=== PATIENT | male | born 1950 | race Caucasian/White ===

== ENCOUNTER 2016-12-12 10:30 | Day surgery (SDC) | payer MEDICARE, OTHER ==
--- NOTE | 2016-12-11 15:01 | HP ---
DATE OF SURGERY: 12/12/2016 ADMISSION DIAGNOSIS: Epigastric pain. Follow up colonoscopic examination for polyps. ANTICIPATED PROCEDURE: EGD and colonoscopy. HISTORY OF PRESENT ILLNESS: The patient is due for three year follow up for colon polyps. He also has epigastric discomfort and no recent endoscopic examination. He presents for EGD and colonoscopy. PAST MEDICAL HISTORY: ALLERGIES: NONE. MEDICATIONS: Prilosec, Flomax, Zocor, Lotensin. PAST SURGICAL HISTORY: Vasectomy, cholecystectomy. Tumor of right leg. SOCIAL HISTORY: Negative. FAMILY HISTORY: Negative. PHYSICAL EXAMINATION: VITAL SIGNS: Normal. CHEST: Clear. COR: Regular. IMPRESSION: Epigastric pain. PLAN: Upper and lower endoscopic examination.
[~2016-12-12 10:30] MED LIST: DEMEROL 50 MG IV ONE; VERSED 5 MG/5 ML IV ONE
[2016-12-12] MEDS ORDERED: Sodium Chloride 0.9% 1000 ML 1,000 ML IV SCH (11:15)
[2016-12-12] MEDS ORDERED: Sodium Chloride 0.9% 1000 ML 1,000 ML ONE ×2 (11:26→13:45)
--- NOTE | 2016-12-12 15:39 | OP ---
SURGERY DATE/TIME: 12/12/2016 1320 PREOPERATIVE DIAGNOSES: 1) Epigastric pain, symptoms of reflux. 2) Follow up for polyps. PROCEDURES: 1) Colonoscopy complete to cecum with moderate internal hemorrhoids. 2) EGD with hot polypectomy x10 with diagnosis of multiple gastric polyps, benign grossly and grade II/III gastroesophageal reflux disease. No hiatal hernia. SURGEON: Margarito Donis M.D. ANESTHESIA: IV sedation. COMPLICATIONS: None. CONDITION: Stable. INDICATION: A 66 year-old requiring three year follow up of colon polyps. He also has epigastric symptoms. He had not had recent endoscopic exam. DESCRIPTION OF PROCEDURE: The patient is taken to the endoscopy suite. Left lateral decubitus position. After suitable sedation obtained the scope was introduced. There was grade II-III gastroesophageal reflux disease. There was no hiatal hernia. There was 10-20 polyps, the larger 10 were taken with hot biopsy forceps to extinction. Pylorus satisfactory. Duodenal bulb satisfactory. Second portion satisfactory. Scope withdrawn looped upon itself. Gastroesophageal junction satisfactory from below. Scope withdrawn. Anal digital examination satisfactory. Scope introduced. First the scope advanced to hepatic flexure and the up/down broke. It was withdrawn. A second scope placed and the right colon was cannulated to the base of the cecum. The base of the cecum was totally blind end. Ileocecal valve identified. Ascending, hepatic, transverse, splenic, descending, sigmoid, rectum there was moderate internal hemorrhoids. There were no polyps today. PLAN: Five year follow up on the colon, five year follow up on the stomach. The patient is to continue his pain medications.
[2016-12-12 17:17] VITALS: PULSE 63; O2SAT 98
[2016-12-12 17:21] VITALS: BP 149/99
== END 2016-12-12 17:25 | disposition home or self-care (01) ==
LOC: SDC 10:30
PROVIDERS: ATTEND Surgery
PROC: 0DJD8ZZ Inspection of Lower Intestinal Tract, Via Natural or Artificial Opening Endoscopic (ICD-10-PCS; principal; 2016-12-12)
PROC: 0DB68ZX Excision of Stomach, Via Natural or Artificial Opening Endoscopic, Diagnostic (ICD-10-PCS; 2016-12-12)
DX: K21.9 Gastro-esophageal reflux disease without esophagitis (principal); Z09 Encounter for follow-up examination after completed treatment for conditions other than malignant neoplasm; Z86.010 Personal history of colon polyps; K64.8 Other hemorrhoids; K31.7 Polyp of stomach and duodenum
CPT/HCPCS: 36415; 88305; J2175; J2250

== ENCOUNTER 2022-05-30 06:53 | Day surgery (SDC) | payer MEDICARE, OTHER ==
--- NOTE | 2022-05-28 11:55 | HP ---
DATE OF SURGERY: 05/30/2022 HISTORY OF PRESENT ILLNESS: The patient presents with complaints of heartburn all the time. The patient has left upper quadrant pain to epigastric pain. He has been on an acid director of dementia operations since 1995. He recently went on vacation and was not able to keep the head of the bed elevated and had a bad flare up. Last colonoscopy was five years ago that had colon polyps. PAST MEDICAL HISTORY: Gout. Arthritis. Hyperlipidemia. Hypertension. Reflex. PAST SURGICAL HISTORY: Appendectomy. Cholecystectomy. Right calf skin cancer. Septoplasty. ALLERGIES: NKDA. MEDICATIONS: Aspirin, zinc, omeprazole, levothyroxine, Flomax, vitamin C, Lipitor, vitamin D. FAMILY HISTORY: Lung cancer. SOCIAL HISTORY: Negative. REVIEW OF SYSTEMS: CONSTITUTIONAL: Denies fever or chills. CHEST: Denies shortness of breath. CVS: Denies chest pain. ABDOMEN: Reports epigastric pain, left upper quadrant pain. PHYSICAL EXAMINATION: GENERAL: No acute distress. CHEST: Nonlabored. No shortness of breath. CVS: Regular rate and rhythm. ABDOMEN: Soft. IMPRESSION: Heartburn, epigastric pain, left upper quadrant pain, history of colon polyps. PLAN: EGD and colonoscopy with Dr. Margarito Donis. As dictated by Twila Camacho NP.
[2022-05-30] MEDS ORDERED: Lactated Ringers 1,000 ML IV ONE (07:08)
[2022-05-30 07:26] VITALS: O2SAT 96
[2022-05-30] MEDS ORDERED: Lactated Ringers 1,000 ML IV SCH (07:30)
[2022-05-30] MEDS ORDERED: Xylocaine-Mpf 2% 5 Ml Vial ONE (10:17)
[2022-05-30] MEDS ORDERED: DIPRIVAN 200 MG/20 ML IV ONE (10:17)
--- NOTE | 2022-05-30 10:59 | OP ---
SURGERY DATE/TIME: 05/30/2022 1015 PREOPERATIVE DIAGNOSES: 1) Recent severe epigastric pain with previous history of reflux. 2) Five year follow up of colon polyps. POSTOPERATIVE DIAGNOSES: 1) Small hiatal hernia. 2) Severe internal hemorrhoids. PROCEDURES: 1) EGD. 2) Colonoscopy complete to cecum. SURGEON: Margarito Donis M.D. ROULETTE DEALER: Mary Kate Rosa M.D. ANESTHESIA: MAC. COMPLICATIONS: None. CONDITION: Stable. INDICATION: A patient requiring evaluation. DESCRIPTION OF PROCEDURE: Patient taken to endoscopy. Left lateral decubitus position. MAC sedation provided. Scope introduced. Pharyngoesophageal junction normal. Esophagus normal down to gastroesophageal junction. Rim of esophagitis grade 2 over 4. There was a small hiatal hernia between 0.5 and 1 inch. Fundus, body, antrum normal. Pylorus normal. Duodenal bulb normal. Second portion normal. The scope withdrawn looped upon itself. A small hiatal hernia. Scope withdrawn looped upon itself. Small hiatal hernia. Scope withdrawn. Anal digital examination satisfactory. Scope advanced to the cecum. Base of the cecum, ileocecal valve, appendiceal orifice normal. Ascending, hepatic, transverse, splenic, descending, sigmoid, rectum and anus. There were severe internal hemorrhoids. The patient tolerated the procedure satisfactorily. Follow up in five years with C-scope.
[2022-05-30 11:24] VITALS: BP 139/80; PULSE 74
== END 2022-05-30 11:27 | disposition home or self-care (01) ==
LOC: SDC 06:53
PROVIDERS: ATTEND Surgery
DX: Z09 Encounter for follow-up examination after completed treatment for conditions other than malignant neoplasm (principal); Z86.010 Personal history of colon polyps; R10.13 Epigastric pain; Z87.19 Personal history of other diseases of the digestive system; K44.9 Diaphragmatic hernia without obstruction or gangrene; K64.8 Other hemorrhoids
CPT/HCPCS: 99100; J2704

== ENCOUNTER 2023-01-09 09:17 | Day surgery (SDC) | payer MEDICARE, OTHER ==
--- NOTE | 2023-01-08 13:21 | HP ---
DATE OF SURGERY: 01/09/2023 HISTORY OF PRESENT ILLNESS: The patient is a 72-year-old male presents with multiple lesions that he would like to have excised. He has a lesion below the right eye, left ear, back and right forearm. PAST MEDICAL HISTORY: Gastroesophageal reflux disease, thyroid, hyperlipidemia, arthritis, gout and hypertension. PAST SURGICAL HISTORY: Appendectomy. Cholecystectomy. Skin cancer removal. Septoplasty. ALLERGIES: NKDA. MEDICATIONS: Vitamin D, Lipitor, vitamin C, thyroid, zinc, aspirin, loratadine, testosterone, tamsulosin, amlodipine, Nexium. FAMILY HISTORY: Lung cancer. SOCIAL HISTORY: Negative. REVIEW OF SYSTEMS: CONSTITUTIONAL: Denies fever or chills. CHEST: Denies shortness of breath. CVS: Denies chest pain. ABDOMEN: Denies abdominal pain. PHYSICAL EXAMINATION: GENERAL: No acute distress. CHEST: Nonlabored. No shortness of breath. CVS: Regular rate and rhythm. ABDOMEN: Soft. IMPRESSION: Multiple skin lesions of the right below the eye, left ear, back and right forearm. PLAN: Excision of multiple skin lesions as listed above with Dr. Margarito Donis. As dictated by Twila Camacho NP.
[~2023-01-09 09:17] MED LIST changes: -DEMEROL 50 MG IV ONE; -VERSED 5 MG/5 ML IV ONE; +XYLOCAINE 1% HCL 20 ML MDV ONE
[2023-01-09] MEDS ORDERED: CEFAZOLIN 2 GM-D5W BAG** 2 GM/50 ML ML IV SCH (10:00)
[2023-01-09] MEDS ORDERED: VERSED 5 MG/5 ML ONE (10:00)
[2023-01-09] MEDS ORDERED: DEMEROL 50 MG SDV ONE (10:00)
[2023-01-09] MEDS ORDERED: Lactated Ringers 1,000 ML IV SCH (10:00)
[2023-01-09] MEDS ORDERED: BACIGUENT 30 GM ONE (12:11)
[2023-01-09 12:53] VITALS: PULSE 65
[2023-01-09 13:12] VITALS: BP 140/89; O2SAT 95
--- NOTE | 2023-01-09 14:04 | OP ---
SURGERY DATE/TIME: 01/09/2023 1122 PREOPERATIVE DIAGNOSES: 1) A 1.5 cm lesion of the mid upper back excision and closure. 2) A 1.2 cm lesion right forearm excision and closure. 3) A 1 cm area of the right lower eye - cheek excision and closure. 4) A 1 cm area of the left ear excision and closure. POSTOPERATIVE DIAGNOSES: 1) A 1.5 cm lesion of the mid upper back excision and closure. 2) A 1.2 cm lesion right forearm excision and closure. 3) A 1 cm area of the right lower eye - cheek excision and closure. 4) A 1 cm area of the left ear excision and closure. PROCEDURE: Excision of multiple lesions of right eye, left ear and right forearm. SURGEON: Margarito Donis M.D. ANESTHESIA: IV sedation, 20 minutes of monitored, Versed and Demerol. COMPLICATIONS: None. CONDITION: Stable. DESCRIPTION OF PROCEDURE: Blood pressure, heart rate, oximeter monitored and was satisfactory. Comfort level was satisfactory. The patient presented to the OR. IV sedation titrated. 1% local infiltrated at all four sites. These areas were excised and closed as stated. The patient tolerated the procedure satisfactorily. Sterile dressing and ointment applied.
== END 2023-01-09 13:15 | disposition home or self-care (01) ==
LOC: SDC 09:17
PROVIDERS: ATTEND Surgery
DX: C44.519 Basal cell carcinoma of skin of other part of trunk (principal); C44.612 Basal cell carcinoma of skin of right upper limb, including shoulder; L57.0 Actinic keratosis; L98.8 Other specified disorders of the skin and subcutaneous tissue
CPT/HCPCS: 88305; J0690; J2175; J2250; A9270-GY

== ENCOUNTER 2023-05-19 12:41 | Emergency (ER) | payer MEDICARE, OTHER ==
[2023-05-19 13:03] VITALS: BP 153/94; PULSE 72; RESP 18; TEMP 97.8; O2SAT 97
--- NOTE | 2023-05-19 13:34 | XRAY ---
Indication: Syncope. Status post fall. Multiple contiguous axial images obtained through the head without contrast. Comparison: None Age-appropriate global atrophy with minimal periventricular degenerative micro-ischemia bilaterally. No acute intracranial hemorrhage, abnormal extra-axial fluid collection, or mass effect. Fourth ventricle is midline without hydrocephalus. Tineo-white matter differentiation preserved. Bony calvarium intact. Visualized paranasal sinuses and mastoid air cells are clear. Impression: Nonacute senile brain.
--- NOTE | 2023-05-19 13:36 | XRAY ---
Indication: Syncope. Status post fall. Multiple contiguous axial images obtained through the cervical spine. Sagittal and coronal reformatted images obtained. Comparison: None Osseous structures demineralized. Axial images negative for acute fracture, suspicious bony lesions, or spinal canal stenosis. Mild multilevel bilateral degenerative facet hypertrophy and moderate atlantoaxial degenerative changes. Sagittal and coronal reformatted images demonstrates normal alignment. No acute compression fracture, subluxation, or jumped facet. Normal appearing craniocervical junction. Visualized noncontrasted soft tissues are unremarkable. Lung apices clear. Impression: Osteopenia and multilevel degenerative changes. Negative for acute fracture/subluxation.
--- NOTE | 2023-05-19 14:05 | ERPHSYRPT ---
- History of Present Illness Time Seen by Provider: 05/19/23 13:09 Source: patient, family Exam Limitations: no limitations Patient Subjective Stated Complaint: Pt reports he was standing and taking a drink of his coffee when it went down the wrong way causing him to get choked. Due to getting choked he coughed forcefully then lost conscioussness and fell, he believes he hit the back of his head against the edge of a table. Triage Nursing Assessment: Pt alert and oriented x3. No apparent respiratory distress. Ambulated to ED cot without difficulty. Skin w/p/d. Accompanied by spouse. Laceration to back of head 0.3cm by 1.8cm with a small skin abrasion to the right of the laceration. Physician History: 73-year-old male with a history of hypertension, hyperlipidemia, hypothyroidism presented to the ER after he got choked on while drinking coffee, coughed really hard leading to near syncope to syncopal episode. On the way down he probably hit the edge of a table. It was for couple of seconds. Patient denies any chest pain palpitations or shortness of breath before or after this episode. He did have a laceration back of his head. Denies any numbness tingling or focal weakness. Complaining of mild headache does not want anything for it. No injury anywhere else. Patient is awake alert oriented x4 with no signs of distress. 2 cm laceration at the posterior parietal area with no active spurting or oozing. No step in deformity. Minimal tenderness around. No cervical spine tenderness. Intact range of motion. Lungs bilateral clear to auscultation. Abdominal exam soft nontender. Nonfocal neuro exam. Obtained CT head and cervical spine which are negative for acute intracranial findings. Also has no fracture subLuxation of cervical spines. Laceration is repaired. I believe patient has syncope, offered EKG and other work-up he does not want to do it. I think it is reasonable patient vasovagal from coughing hard. Recommended outpatient follow-up. Discussed signs symptoms of worsening needing return to ER which he seems understanding Allergies/Adverse Reactions: No Known Drug Allergies Allergy (Verified 05/19/23 12:53) Home Medications: Aspirin 81 mg PO DAILY 06/10/13 [History] Ascorbic Acid 500 mg [Vitamin C 500 MG] 500 mg PO DAILY 12/11/16 [History] Atorvastatin Calcium [Lipitor 40Mg] 40 mg PO DAILY 12/11/16 [History] Levothyroxine Sodium 50 Mcg [Synthroid 50 Mcg] 50 mcg PO DAILY 12/11/16 [History] Testosterone Cypionate 1 mg IM UD 12/11/16 [History] Cholecalciferol (Vitamin D3) [Vitamin D3] 1,000 unit PO DAILY 05/30/22 [History] Amlodipine/Atorvastatin [Amlodipine-Atorvast 5-20 mg] 1 tab PO DAILY 12/17/22 [History] Esomeprazole Magnesium [Nexium] 40 mg PO DAILY 12/17/22 [History] Loratadine 10 mg [Claritin 10 mg] 10 mg PO DAILY 12/17/22 [History] Tamsulosin HCl 0.4 mg [Flomax 0.4 MG] 0.4 mg PO DAILY 05/19/23 [History] Hx Tetanus, Diphtheria Vaccination/Date Given: Yes (2015) Hx Influenza Vaccination/Date Given: Yes (2021) Hx Pneumococcal Vaccination/Date Given: Yes Travel Risk - International Travel Have you traveled outside of the country in past 3 weeks: No - Coronavirus Screening Are you exhibiting any of the following symptoms?: No Close contact with a COVID-19 positive Pt in past 14-21 Days: No - Vaccine Status Have you recieved a Covid-19 vaccination: Yes Home Improvement Advisor: Moderna - Vaccination Dates Date of 2cond Vaccination (if applicable): ? - Review of Systems Constitutional: No Symptoms Eyes: No Symptoms Ears, Nose, & Throat: No Symptoms Respiratory: No Symptoms Cardiac: No Symptoms Abdominal/Gastrointestinal: No Symptoms Genitourinary Symptoms: No Symptoms Musculoskeletal: Arthralgias Skin: Skin Lesions Neurological: Headache Psychological: No Symptoms Endocrine: No Symptoms Hematologic/Lymphatic: No Symptoms - Past Medical History Pertinent Past Medical History: Yes Neurological History: Other ENT History: No Pertinent History Cardiac History: Hypertension Respiratory History: No Pertinent History Endocrine Medical History: Hypothyroidism Musculoskeletal History: Osteoarthritis GI Medical History: GERD History: No Pertinent History Psycho-Social History: No Pertinent History Male Reproductive Disorders: Prostate Problems Other Medical History: 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 several skin cancers removed., left knee jul 2022, - Social History Smoking Status: Never smoker Exposure to second hand smoke: No Alcohol Use: None Drug Use: none Patient Lives Alone: No Significant Family History: hypertension - Nursing Vital Signs Nursing Vital Signs: Initial Vital Signs Temperature 97.8 F 05/19/23 12:48 Pulse Rate 72 05/19/23 12:48 Respiratory Rate 18 05/19/23 12:48 Blood Pressure 153/94 05/19/23 12:48 O2 Sat by Pulse Oximetry 97 05/19/23 12:48 Pain Scale Pain Intensity 4 - Guzman Coma Score Best Eye Response (Allen): (4) open spontaneously Best Verbal Response (Guzman): (5) oriented Best Motor Response (Guzman): (6) obeys commands Allen Total: 15 - Physical Exam General Appearance: no apparent distress, alert Head Injury: lacerations (Centimeters posterior occipital), tenderness Eye Exam: PERRL/EOMI, eyes nml inspection ENT Exam: airway nml, nml ext.inspection, No evidence of ENT injury, No dental injury Neck Exam: supple, trachea midline, full range of motion, normal alignment Respiratory/Chest Exam: normal breath sounds, No chest tenderness, No respiratory distress Cardiovascular Exam: normal heart sounds, regular rate/rhythm Gastrointestinal Exam: soft, No tenderness Back Exam: normal inspection, normal range of motion Extremity Exam: normal inspection, normal range of motion Neurologic Exam: alert, oriented x 3, cooperative, aircraft refueler II-XII nml as tested, normal mood/affect, sensation nml, No nml cerebellar function, No motor deficits Skin Exam: normal color SpO2 Interpretation: normal SpO2: 97 O2 Delivery: Room Air Procedures - Laceration/Wound Repair Parietal Time of Procedure: 14:04 Wound Location: head Wound Length (cm): 2 Wound's Depth, Shape: into muscle (2), linear Wound Explored: clean Irrigated: Yes Hibiclens Prep: Yes Anesthesia: 1% Lidocaine Volume Anesthetic (ccs): 4 Wound Repaired With: Taran Number of Sutures: 4 Ordered Tests: Active Orders 24 hr Category Date Time Status CERVICAL SPINE WO CONTRAST [CT] Stat Exams 05/19/23 13:06 Completed HEAD WITHOUT CONTRAST [CT] Stat Exams 05/19/23 13:06 Completed - Progress Progress: improved Progress Note: 05/19/23 14:05 73-year-old male with a history of hypertension, hyperlipidemia, hypothyroidism presented to the ER after he got choked on while drinking coffee, coughed really hard leading to near syncope to syncopal episode. On the way down he probably hit the edge of a table. It was for couple of seconds. Patient denies any chest pain palpitations or shortness of breath before or after this episode. He did have a laceration back of his head. Denies any numbness tingling or focal weakness. Complaining of mild headache does not want anything for it. No injury anywhere else. Patient is awake alert oriented x4 with no signs of distress. 2 cm laceration at the posterior parietal area with no active spurting or oozing. No step in deformity. Minimal tenderness around. No cervical spine tenderness. Intact range of motion. Lungs bilateral clear to auscultation. Abdominal exam soft nontender. Nonfocal neuro exam. Obtained CT head and cervical spine which are negative for acute intracranial findings. Also has no fracture subLuxation of cervical spines. Laceration is repaired. I believe patient has syncope, offered EKG and other work-up he does not want to do it. I think it is reasonable patient vasovagal from coughing hard. Recommended outpatient follow-up. Discussed signs symptoms of worsening needing return to ER which he seems understanding Counseled pt/family regarding: diagnosis, need for follow-up, rad results - Departure Departure Disposition: Home Clinical Impression: Scalp laceration, Cough syncope Condition: Stable Critical Care Time: No Referrals: RADHA CROCKETT MD [Primary Care Provider] - Follow up with PCP 1 day Instructions: Head Injury in Adults (DC), Syncope (Fainting) (DC) Additional Instructions: Intermittent ice application. Tylenol as needed for pain/headache. Follow-up with primary care for reevaluation in 1 to 2 days. Follow head injury instructions and return to ER if having headache, intractable vomiting, numbness tingling focal weakness, chest pain palpitations or difficulty breathing etc.
== END 2023-05-19 14:25 | disposition home or self-care (01) ==
LOC: ED 12:41
DX: S01.01XA Laceration without foreign body of scalp, initial encounter (principal); W18.39XA Other fall on same level, initial encounter; R05.8 Other specified cough; R55 Syncope and collapse; I10 Essential (primary) hypertension; Z79.899 Other long term (current) drug therapy
CPT/HCPCS: 12001; 70450; 72125; 99283

== ENCOUNTER 2024-07-20 11:59 | Day surgery (SDC) | payer MEDICARE, OTHER ==
[2024-07-20] MEDS: Ak-Dilate OPHTHALMIC*** 1.065 ML, Cyclogyl 1% OPHTH SOL 1.065 ML, GATIFLOXACIN 0.5% OPH... OP ONE (12:47)
[2024-07-20] MEDS: TETRACAINE 0.5% STERI-UNIT SOL OP ONE (12:47)
[2024-07-20] MEDS ORDERED: Sodium Chloride 0.9% 10 ML FLUSH Syringe IJ ONE (13:00)
[2024-07-20] MEDS ORDERED: BETADINE 5% OPHTHALMIC 30 ML OP ONE (13:00)
[2024-07-20] MEDS ORDERED: TETRACAINE 0.5% STERI-UNIT SOL OP ONE (13:00)
[2024-07-20] MEDS ORDERED: TRIAMCINOLONE 15 MG/ML INJ INTRAOP ONE (13:00)
[2024-07-20] MEDS ORDERED: VIGAMOX/BSS 0.15% SYR IO ONE (13:00)
[2024-07-20 13:32] LABS: ANION GAP 13.2 MEQ/L (5-15); Calcium 9.4 mg/dL (8.4-10.2); Creatinine 1 1.18 mg/dL (0.66-1.25); Potassium 4.5 mmol/L (3.5-5.1)
[2024-07-20] MEDS ORDERED: DIPRIVAN 200 MG/20 ML IV ONE (13:49)
[2024-07-20 14:26] VITALS: BP 110/75; O2SAT 95
[2024-07-20] MEDS: ACETAZOLAMIDE 250 MG TABLET PO ONE (14:28)
[2024-07-20 14:31] VITALS: PULSE 73; RESP 16; TEMP 97.4
[2024-07-20] MEDS ORDERED: Epinephrine Preservative Free 1 MG/ML IJ ONE (15:00)
[2024-07-20] MEDS ORDERED: Zofran 4 MG/2 ML VIAL IV PRN (15:00)
== END 2024-07-20 14:50 | disposition home or self-care (01) ==
LOC: SDC 11:59
PROVIDERS: ATTEND Ophthalmology
DX: H25.811 Combined forms of age-related cataract, right eye (principal); I10 Essential (primary) hypertension
CPT/HCPCS: 36415; 66982; 80048; 93005; C1780; J0171; J2704; A9270-GY